=== PATIENT | female | born 1985 | race Hispanic/Latino ===

== ENCOUNTER 2019-09-26 09:58 | Outpatient (CLI) | payer OTHER ==
--- NOTE | 2019-09-26 11:46 | ULT ---
OB ULTRASOUND: HISTORY: anatomy. FINDINGS: A single live intrauterine gestation is seen with measurements corresponding to an estimated gestatio nal age of 30 weeks 5 days and an JOSUE of 11/30/2019. The estimated weight measures 1678 g or 3 lbs 11 oz (42nd percentile by Hadlock criteria). measurements are as follows: BPD: 7.16 cm (28 weeks 6 days) HC: 28.32 cm (31 weeks 1 day) AC: 26.96 cm (31 weeks 1 day) FL: 6.05 cm (31 weeks 4 days) heart rate measures 126 beats per minute. Placenta is anteriorly located without evidence of pl acenta previa. RACHAEL measures 14.1 cm. Three vessel cord, cord insertion, kidneys, bladder, stomach, four chambered heart, lateral stacie tricles, cerebellum, spine, lips/nose and upper and lower extremities are visualized. IMPRESSION: Single live intrauterine of 30 weeks' 5 days' estimated gestational age and an estimated da te of delivery of 11/30/2019. POS: [facility]
== END 2019-09-26 09:59 | disposition home or self-care (01) ==
LOC: BICULT 09:58
PROVIDERS: ATTEND Nurse Practitioner
DX: Z34.83 Encounter for supervision of other normal pregnancy, third trimester (principal); Z3A.30 30 weeks gestation of pregnancy
CPT/HCPCS: 76805

== ENCOUNTER 2019-11-29 15:08 | Inpatient (IN) | payer OTHER ==
[~2019-11-29 15:08] MED LIST: Bupivacaine 0.25% HCL 30 ML VIAL ONE
[2019-11-29 15:50] VITALS: BMI 30.1
[2019-11-29] MEDS ORDERED: Butorphanol Tartrate 1 MG/ML VIAL SLOW IVP PRN (16:34)
[2019-11-29] MEDS ORDERED: HYDROcodone/Acetaminophen 5/325 mg Tablet PO PRN ×2 (16:34)
[2019-11-29] MEDS ORDERED: Meperidine HCl/PF 25 MG/ML VIAL IM/IV PRN (16:34)
[2019-11-29] MEDS ORDERED: Ondansetron PF 4 MG/2 ML Vial IVP PRN ×3 (16:34→21:19)
[2019-11-29] MEDS ORDERED: Acetaminophen 500 MG TAB PO PRN (16:34)
[2019-11-29] MEDS ORDERED: Ibuprofen 800 MG TAB PO PRN (16:34)
[2019-11-29] MEDS ORDERED: hydrALAZINE 20 MG/ML VIAL SLOW IVP PRN ×2 (16:34→21:19)
[2019-11-29] MEDS ORDERED: Promethazine HCl 25 MG/ML VIAL IM PRN ×2 (16:34→17:59)
[2019-11-29] MEDS ORDERED: Lidocaine 1% (PF) 30 ML VIAL SC PRN (16:34)
[2019-11-29] MEDS ORDERED: NS w/ Oxytocin 10 units 500 ML IV SCH (16:45)
[2019-11-29] MEDS ORDERED: Lactated Ringer's 1,000 ML IV SCH ×2 (16:45)
[2019-11-29 16:46] LABS: Hemoglobin 10.8 g/dL (12.0-16.0); Mean Corpuscular HGB CONC 34.4 g/dL (32.0-36.0); Mean Corpuscular Hemoglobin 29.7 pg (27.0-31.0); Mean Corpuscular Volume 86.4 fL (78.0-98.0); Mean Platelet Volume 9.5 fL (7.4-10.4); Platelet Count 278 thou/uL (130-400); Red Blood Cell (RBC) Count 3.63 mill/uL (4.20-5.40); White Blood Cell (WBC) Count 9.2 thou/uL (4.8-10.8)
--- NOTE | 2019-11-29 16:51 | PDOC.LDHP ---
Labor and Delivery H&P Chief complaint: contractions HPI: 34 yo LAF c/o regular UCs since this AM. Denies ROM or bleeding. Current gestational age (weeks): 40 Due date: 11/29/19 Dating criteria: last menstrual period Grav: 5 Para: 3 OB History Details: at term x 3, no complications. SAB x1, no D&C needed. Current complications: none Abnormal US findings: No Past Medical History: none Current medications: pre-walt vitamins Previous surgical history: appendectomy, other (rhinoplasty) Allergies/Adverse Reactions: Allergies Allergy/AdvReac Type Severity Reaction Status Date / Time No Known Allergies Allergy Unverified 11/29/19 15:49 Social history: none - Physical Exam Vital signs reviewed and normal: yes General: resting Heart: RRR Lungs: CTAB Abdomen: gravid Extremeties: trace edema FHT: category 1 [place] contractions every: q 5-6 mins. - Vaginal Exam cm dilated: 4 Effacement: 50% Station: -2 - OB Labs GBS: negative - Assessment L&D Assessment: term patient in labor - Plan Plan: admit to L&D, labor augmentation if indicated, informed consent obtained, anesthesia consult for pain management, other (Dr. karen ALANIS, [facility] to manage.)
[2019-11-29 17:32] LABS: Syphilis Antibody Nonreactive (Nonreactive); Syphilis Antibody Index 0.08 S/CO (<1.00 Non-Reactive)
[2019-11-29 17:33] LABS: HBSAg Index 0.23 S/CO (0-0.99); Hep B Surf Ag Non-Reactive S/CO (NonReactive)
[2019-11-29] MEDS ORDERED: Fentanyl 4 mcg/Bup 0.1% Cadd 100 ML ONE (17:34)
[2019-11-29] MEDS ORDERED: Lactated Ringer's 500 ML IV PRN (17:59)
[2019-11-29] MEDS ORDERED: diphenhydrAMINE 50 MG/ML VIAL IVP PRN (17:59)
[2019-11-29] MEDS ORDERED: EPHEDRINE 25 MG/5 ML SYRINGE SLOW IVP PRN (17:59)
[2019-11-29] MEDS ORDERED: Acetaminophen 325 MG TAB PO PRN (17:59)
[2019-11-29] MEDS ORDERED: Naloxone HCl 0.4 mg/ml Vial IVP PRN ×2 (17:59)
[2019-11-29] MEDS ORDERED: Fentanyl 4 mcg/Bupivacaine 0.1% Cassette 100 ML EPIDURAL SCH (18:00)
[2019-11-29] MEDS ORDERED: Communication Order-Pharmacy FS SCH (18:00)
[2019-11-29] MEDS ORDERED: NS / Oxytocin 40 units/1000ml 1,000 ML ONE (18:31)
[2019-11-29] MEDS ORDERED: Lidocaine 1% (PF) 30 ML VIAL ONE (18:31)
[2019-11-29] MEDS: NS / Oxytocin 40 units/1000ml 1,000 ML IV PRN ×2 (19:07→20:35)
--- NOTE | 2019-11-29 19:15 | PDOC.OPDEL ---
OB Operative/Delivery Note Delivery Dr/Surgeon: Pebbles/ Saul Pre-Delivery Diagnosis: active labor Procedure/Post Delivery Dx: spontaneous vaginal delivery Weeks gestation: 40 Anesthesia: epidural - Additional Findings/Plan Placenta delivered: spontaneous Repaired Obstetrical Laceration: none Estimated blood loss: 100 cc Compilations/Other Findings: of viable male over intact perineum. Apgars 8/9. Mom and baby doing well. Post delivery plan: routine recovery
[2019-11-29] MEDS ORDERED: Bisacodyl 10 MG SUPP PR PRN (21:19)
[2019-11-29] MEDS ORDERED: Lanolin Ointment 7 GM TUBE TOP PRN (21:19)
[2019-11-29] MEDS ORDERED: Milk Of Magnesia 30 ML UDCUP PO PRN (21:19)
[2019-11-29] MEDS ORDERED: NS / Oxytocin 40 units/1000ml 1,000 ML IV SCH (21:19)
[2019-11-29] MEDS ORDERED: Docusate Calcium (SURFAK) 240 MG CAP PO SCH (21:30)
[2019-11-29] MEDS ORDERED: Ibuprofen 800 MG TAB PO SCH (22:00)
[2019-11-30] MEDS: Ibuprofen 100 MG/5 ML UDCUP PO SCH ×3 (00:06→15:48)
--- NOTE | 2019-11-30 05:03 | PDOC.OBPPN ---
FMR OB PN: Subj - Interval History Day: 1 Pt doing well. Reports ambulating and tolerating PO. Reports abd pain well controlled and bleeding similar to a period. She denies N/V, headache, vision changes, swelling. FMR OB PN: Obj - Maternal Vital signs: BP: 109/58 HR: 71 RR: 20 Tmax: 98.2 Pox: 100% on RA Wt: 77kg - Urine output I&O: 11/28/19 11/29/19 11/30/19 06:59 06:59 06:59 Output Total 81 Balance -81 FMR OB PN: Exam - Physical Exam General: NAD, awake, alert and oriented HEENT: MMM, conjunctiva clear, grossly normal vision, grossly normal hearing Neck: supple, no LAD Heart: pulses present, no edema General: no respiratory distress Abdomen: soft, fundus(cm) (firm 2cm below umbilicus) Musculoskeletal: pulses present, FROM in all four extremities Neurological: no tremor, no focal deficit Skin: good tugor, capillary refill <2 seconds Lymphatic: no unusual bruising or bleeding, no purpura Psychiatric: intact recent and remote memory, good judgement and insight FMR OB PN: Data - Labs Lab results: Laboratory Results - last 24 hr 11/29/19 11/29/19 11/29/19 16:23 16:23 16:23 WBC RBC Hgb Hct MCV MCH MCHC RDW Plt Count MPV Syphilis IgG/IgM Ab Nonreactive Hep Bs Antigen Non-Reactive Blood Type A POSITIVE Antibody Screen NEGATIVE 11/29/19 11/29/19 16:23 17:08 WBC 9.2 RBC 3.63 L Hgb 10.8 L Hct 31.4 L MCV 86.4 MCH 29.7 MCHC 34.4 RDW 13.0 Plt Count 278 MPV 9.5 Syphilis IgG/IgM Ab Hep Bs Antigen Blood Type A POSITIVE Antibody Screen FMR OB PN: A/P - Problem List (1) Term delivered Current Visit: Yes Status: Acute Code(s): O80 - ENCOUNTER FOR FULL-TERM UNCOMPLICATED DELIVERY Assessment and Plan: Cont routine care -PNV -ibuprofen for pain -encourage breast feeding -H/H pending for this AM Disposition: Continue to monitor on L&D Discussion: Date/Time: 11/30/19 0501 This H&P was discussed with Dr. Rogel who agrees with the above documentation and plan. Signature: Marichuy Hughes MD, PGY-3 Addendum - Attending - Attending Attestation Date/Time: 11/30/19 2834 I personally evaluated the patient and discussed the management with Dr. Hughes. I agree with the History, Examination, Assessment and Plan documented above.
[2019-11-30 05:49] LABS: Hemoglobin 10.2 g/dL (12.0-16.0); Mean Corpuscular HGB CONC 33.6 g/dL (32.0-36.0); Mean Corpuscular Hemoglobin 29.5 pg (27.0-31.0); Mean Corpuscular Volume 87.7 fL (78.0-98.0); Mean Platelet Volume 9.5 fL (7.4-10.4); Platelet Count 229 thou/uL (130-400); RBC Distribution Width 13.1 % (11.5-14.5); Red Blood Cell (RBC) Count 3.45 mill/uL (4.20-5.40); White Blood Cell (WBC) Count 12.3 thou/uL (4.8-10.8)
[2019-11-30] MEDS ORDERED: Sodium Chloride 0.9% 10 ML ONE (08:19)
[2019-11-30] MEDS: Ferrous Sulfate 325 MG TAB PO SCH ×2 (08:28→15:49)
[2019-11-30] MEDS ORDERED: Benzocaine-Menthol 82.5 ML CAN TOP PRN (08:28)
[2019-11-30] MEDS: Docusate Calcium (SURFAK) 240 MG CAP PO SCH ×2 (08:29→21:20)
[2019-11-30] MEDS: Prenatal Vitamin 1 TAB PO SCH (08:29)
[2019-11-30] MEDS ORDERED: Adacel (T-DAP) 0.5 ML SYRINGE IM ONE (09:00)
[2019-12-01] MEDS: Ibuprofen 100 MG/5 ML UDCUP PO SCH ×2 (00:16→08:44)
[2019-12-01 05:23] LABS: Hemoglobin 9.8 g/dL (12.0-16.0); Mean Corpuscular HGB CONC 33.5 g/dL (32.0-36.0); Mean Corpuscular Hemoglobin 29.5 pg (27.0-31.0); Mean Platelet Volume 9.6 fL (7.4-10.4); Platelet Count 233 thou/uL (130-400); RBC Distribution Width 13.2 % (11.5-14.5); Red Blood Cell (RBC) Count 3.32 mill/uL (4.20-5.40)
[2019-12-01] MEDS: Ferrous Sulfate 325 MG TAB PO SCH (08:42)
[2019-12-01] MEDS: Prenatal Vitamin 1 TAB PO SCH (08:43)
[2019-12-01] MEDS ORDERED: Docusate Sodium 100 MG/10 ML UDCUP PO SCH (09:00)
[2019-12-01 14:13] VITALS: BP 116/76; TEMP 98.4
--- NOTE | 2019-12-02 11:39 | DIS ---
DATE OF ADMISSION: 11/29/2019 DATE OF DISCHARGE: 12/01/2019 ADMITTING DIAGNOSES: 1. Intrauterine at 20 weeks. 2. Active labor. DISCHARGE DIAGNOSES: 1. Intrauterine at 20 weeks. 2. Active labor. PROCEDURE PERFORMED: Term spontaneous vaginal delivery. HOSPITAL COURSE: The patient is a 34-year-old multiparous female who presented to Labor and Delivery with uterine contractions, was diagnosed with labor and admitted to the hospital for expectant management. Her labor course resulted in a term spontaneous vaginal delivery. For complete details, please refer to the delivery note. Her course has been uncomplicated. She is now day 2, tolerating p.o., voiding on her own, having good pain control and decreased lochia. Her postdelivery hemoglobin is 9.8, hematocrit 29.2, and platelets of 233,000. Today, patient reports she is tolerating p.o., voiding on her own, having decreased lochia and good pain control. DISCHARGE PHYSICAL EXAMINATION: VITAL SIGNS: Her blood pressure this morning is 103/56, temperature 98.5, pulse is 70, respiratory rate of 16, saturating 97% on room air. GENERAL: She appears to be in no acute distress. She is alert, oriented, cooperative, pleasant to interact with. HEAD: Normocephalic, atraumatic. ABDOMEN: Fundus is firm. EXTREMITIES: Nontender, nonedematous. DISCHARGE INSTRUCTIONS: The patient is being discharged to home. She will be discharged with ibuprofen, has instructions to follow up with her primary OB doctor, Dr. Rdz in 6 weeks or sooner if she experiences fever, increasing pain or bleeding. Job ID: [id number]
== END 2019-12-01 12:41 | disposition home or self-care (01) | DRG 807 ==
LOC: L&D/OP 15:08 → L&D 16:25 → 3SE 22:53
PROVIDERS: ADMIT Family Medicine; ATTEND Family Medicine
PROC: 10E0XZZ Delivery of Products of Conception, External Approach (ICD-10-PCS; principal; 2019-11-29)
DX: O80 Encounter for full-term uncomplicated delivery (principal); Z37.0 Single live birth; Z3A.40 40 weeks gestation of pregnancy
CPT/HCPCS: 36415; 51702; 85027; 86780; 86850; 86900; 86901; 87340; 99285; J2001; S0020